=== PATIENT | male | born 1985 | race Caucasian/White ===

== ENCOUNTER 2017-01-23 05:07 | Emergency (ER) | payer SELFPAY ==
[~2017-01-23] VITALS: Ht 185.4 cm; Wt 90.0 kg
--- NOTE | 2017-01-23 05:26 | PD ---
HPI Chief Complaint: Liu act Time Seen by Provider: 05:23 Travel History International Travel<30 days: No Contact w/Intl Traveler<30days: No Traveled to known affect area: No History of Present Illness HPI 31-year-old male presents to the emergency department from [place] under a Liu act. Patient has been drinking large amount of alcohol. States that he is from [place] and aide at a [facility] and last name but did not have any reservations for this evening. Patient had his car keys with him and police felt that he was a risk so they brought him here for evaluation I'll he kyle up. Patient denies any suicidal homicidal ideations. Denies any acute medical needs. States that he does not need to be here and he is not intoxicated. Has no other symptoms to report. [facility] Past Medical History Medical History: Denies Significant Hx Social History Alcohol Use: Yes Tobacco Use: No Substance Use: No Review of Systems ROS Limitations: Intoxication Except as stated in HPI: all other systems reviewed are Neg Physical Exam Exam Limitations: Intoxication Narrative GENERAL: Well-nourished male patient, clinically intoxicated with strong smell of alcohol on his breath. Patient has emesis on his sugar and in his hair. He has slurred speech. SKIN: Focused skin assessment warm/dry. HEAD: Atraumatic. Normocephalic. EYES: Pupils equal and round. No scleral icterus. I lateral scleral injection. ENT: No nasal bleeding or discharge. Mucous membranes pink and moist. NECK: Trachea midline. No JVD. CARDIOVASCULAR: Regular rate and rhythm. No murmur appreciated. RESPIRATORY: No accessory muscle use. Clear to auscultation. Breath sounds equal bilaterally. GASTROINTESTINAL: Abdomen soft, non-tender, nondistended. Hepatic and splenic margins not palpable. MUSCULOSKELETAL: No obvious deformities. No clubbing. No cyanosis. No edema. NEUROLOGICAL: Awake and alert. No obvious cranial nerve deficits. Motor grossly within normal limits. Slurred speech. [facility] Medical Decision Making Medical Screen Exam Complete: Yes Emergency Medical Condition: Yes Medical Record Reviewed: Yes Differential Diagnosis Intoxication versus substance abuse versus mood disorder versus personality disorder Narrative Course When he 11-year-old male presents to the [facility] department under a Liu act for evaluation. Patient is clinically intoxicated. He'll be observed until he is clinically sober and has a safe transportation home. At that time he'll be discharged. Diagnosis Primary Impression: Alcohol intoxication Qualified Code: F10.920 - Alcohol intoxication, uncomplicated Referrals: [facility] (Out patient) Additional Instructions: Consume alcohol in moderation Follow-up with a primary care provider Return immediately with any acute worsening of symptoms Med/Other Pt SpecificInfo: No Change to Meds Disposition: 01 DISCHARGE HOME Condition: Stable Mary Cortez January 23, 2017 05:26
[2017-01-23 05:28] VITALS: BP 118/70; PULSE 75; RESP 18; TEMP 98; O2SAT 98
[2017-01-23 07:30] VITALS: BP 121/77; PULSE 69; RESP 16; O2SAT 97
[2017-01-23 10:45] VITALS: BP 119/75; PULSE 70; RESP 18; O2SAT 98
== END 2017-01-23 11:00 | disposition home or self-care (01) ==
LOC: NEPD 05:07
DX: F10.129 Alcohol abuse with intoxication, unspecified (principal)
CPT/HCPCS: 99284